=== PATIENT | female | born 1975 | race Caucasian/White ===

== ENCOUNTER 2019-04-09 10:33 | Emergency (ER) | payer OTHER, SELFPAY ==
[2019-04-09 11:08] VITALS: BP 105/49; PULSE 71; RESP 18; TEMP 36.4; O2SAT 100
--- NOTE | 2019-04-09 11:27 | ED.ABDPAIN ---
HPI - Abdominal Pain General Chief Complaint: Abdominal Pain Stated Complaint: abdominal pain/chills/fever Time Seen by Provider: 04/09/19 11:27 Source: patient and RN notes reviewed History of Present Illness HPI narrative: Patient is a 43-year-old female that presents the urgent care with complaints of abdominal pain, bloating, fever, decreased appetite. Patient states that on Saturday she felt that she was unable to pass gas and felt very bloated but was able to tolerate the pain on Saturday and Saturday. Patient states that then Saturday she started to have the fever and chills with loose stools. Patient has increasingly low abdominal pains. Denies any urinary symptoms. Reports of nausea without vomiting. No other acute complaints. Patient appears to be in pain but otherwise no acute distress noted. Patient read the plan of care. Related Data Home Medications Medication Instructions Recorded Confirmed cholecalciferol (vitamin D3) unit 04/09/19 [Vitamin D3] magnesium oxide 04/09/19 Allergies Allergy/AdvReac Type Severity Reaction Status Date / Time fluconazole Allergy Unknown Hives Verified 04/09/19 11:02 Sulfa (Sulfonamide Allergy Unknown Rash Verified 04/09/19 11:02 Antibiotics) levofloxacin [From Levaquin] AdvReac Joint Pain Verified 04/09/19 11:01 Review of Systems Review of Systems: Narrative: CONSTITUTIONAL: Reports a fever, chills, sweats EYES: Denies visual changes, redness, or discharge. ENT: Denies rhinorrhea, congestion, sore throat, or otalgia. CARDIOVASCULAR: Denies chest pain, palpitations, or edema. RESPIRATORY: Denies cough or dyspnea. GASTROINTESTINAL: Reports of diffuse abdominal pain, bloating, loose stools, nausea GENITOURINARY: Denies dysuria or hematuria. SKIN: Denies rash or itching. MUSCULOSKELETAL: Denies back pain, joint pain, or myalgia. NEUROLOGIC: Denies headache, numbness, or weakness.. All other systems reviewed are negative, except as documented in HPI. [facility] Family History Family History (Updated 05/06/18 @ 09:14 by DOCTOR UNKNOWN) Father Hypertension Family history of elevated blood lipids Family history of diabetes mellitus in first degree relative Family history of coronary artery disease Diabetes mellitus Family history of hypercholesterolemia Grandparent Cerebrovascular accident Social History Social History Smoking status: Former smoker Smoking end date: 02/11/98 Alcohol intake: current Comments At the time of my signature, I reviewed and agree with the nursing past medical, surgical, social, and family history. There is no relevant family history pertinent to the patient complaint. Exam Narrative: Exam Narrative: GENERAL: This is a well-nourished, well-developed patient, in no apparent distress. HEAD: normocephalic, atraumatic. EYES: PERRL. Sclera clear/white. Vision is grossly intact. EARS: External ears normal NOSE: External nose normal with no obvious nasal discharge THROAT: Mucous membranes moist NECK: Neck supple CARDIOVASCULAR: Regular rate and rhythm without murmurs, gallops, or rubs. RESPIRATORY: Clear to auscultation. Breath sounds equal bilaterally. No wheezes, rales, or rhonchi. GASTROINTESTINAL: Abdomen soft, diffuse moderate abdominal tenderness more noted to the lower quadrants with mild distention; negative obturator SKIN: warm, intact with no suspicious lesions or rash, good texture and turgor. NEURO: awake, alert, and oriented to person, place and time. There were no obvious focal neurologic abnormalities. EXTREMITIES: No clubbing, cyanosis, or edema. BACK: Mild bilateral CVA tenderness Course Vital Signs Vital signs: Vital Signs Temperature 97.5 F L 04/09/19 11:08 Pulse Rate 71 04/09/19 11:08 Respiratory Rate 72 H 04/09/19 11:08 Blood Pressure 105/49 L 04/09/19 11:08 Pulse Oximetry 100 04/09/19 11:08 Temperature 97.5 F L 04/09/19 11:08 Pulse Rate 71 04/09/19 11:08 Respiratory Rate 72 H
== END 2019-04-09 11:45 | disposition short-term general hospital (02) ==
PROVIDERS: Emergency Provider Nurse Practitioner Family; PCP Internal Medicine
DX: R10.84 Generalized abdominal pain (principal); R50.9 Fever, unspecified; R14.0 Abdominal distension (gaseous); Z87.891 Personal history of nicotine dependence
CPT/HCPCS: 81003; 87804; 99213; G0463

== ENCOUNTER 2019-04-09 12:05 | Emergency (ER) | payer OTHER, SELFPAY ==
--- NOTE | ~2019-04-09 | CT_ITS ---
EXAMINATION: CT abdomen pelvis w con DATE: 04/09/2019 14:34 INDICATION: Left lower quadrant abdominal pain. TECHNIQUE: Computed tomography (CT) of the abdomen and pelvis was performed with 100 mL Omnipaque 350 intravenous contrast. Automated exposure control and iterative reconstruction technique were employe d. The dose-length product was 279.13 mGy-cm. COMPARISON: CT abdomen and pelvis 10/02/2010 FINDINGS: The visualized portions of the lung bases demonstrate mild atelectasis. No pleural effusion . The heart size is normal. No pericardial effusion. The liver, gallbladder, spleen, pancreas, adrena l glands, and kidneys are normal. There are no dilated loops of bowel. The appendix is normal. There are no pathologically enlarged lymph nodes. There is fat stranding of the greater omentum inferiorly. There is a small volume of ascites. The left periuterine and ovarian veins are enlarged, consistent with pelvic venous insufficiency. There is mild thoracic and lumbar spondylosis. IMPRESSION: 1. Small volume of ascites. 2. Fat stranding of the greater omentum inferiorly, which may be edema or fat necrosis. Peritoneal ca rcinomatosis cannot be excluded. 3. Pelvic venous insufficiency. Reviewed, dictated and finalized at location A. LAYER IMPRESSION: 1. Small volume of ascites. 2. Fat stranding of the greater omentum inferiorly, which may be edema or fat n ecrosis. Peritoneal carcinomatosis cannot be excluded. 3. Pelvic venous insufficiency.
[2019-04-09 12:07] VITALS: BP 115/55; PULSE 71; RESP 19; TEMP 36.7; O2SAT 100
--- NOTE | 2019-04-09 12:18 | PC.NURSE ---
Blood draw attempted x2 with no success.
--- NOTE | 2019-04-09 13:53 | PC.NURSE ---
Patient to restroom at this time.
--- NOTE | 2019-04-09 13:55 | ED.ABDPAIN ---
HPI - Abdominal Pain General Chief Complaint: Abdominal Pain Stated Complaint: abd pain Time Seen by Provider: 04/09/19 13:51 Source: patient Mode of arrival: ambulatory Limitations: no limitations History of Present Illness HPI narrative: A 43 y/o female presents to the ED with c/o generalized ABD pain. Pt states that the ABD pain started 4 days ago and has been constant since. She notes that the ABD pain feels like a fullness and she is bloated. On 04/07/19 she adds that she had one episode of diarrhea, but it has since resolved. Last night the patient started to have a 101F fever and chills. She took Ibuprofen for the fever with relief. Today the patient called her PCP's office and they advised her to be evaluated at the ED. Pt denies N/V and urinary frequency. She does not note ever having these symptoms before. MD elicited complaint: abdominal pain (Generalized) Onset (ago): day(s) (4) Pain Consistency: constant Location: diffuse Quality: fullness Associated symptoms: diarrhea (Resolved), fever, chills and other (ABD bloating) Related Data Home Medications Medication Instructions Recorded Confirmed cholecalciferol (vitamin D3) unit 04/09/19 [Vitamin D3] magnesium oxide 04/09/19 Allergies Allergy/AdvReac Type Severity Reaction Status Date / Time fluconazole Allergy Unknown Hives Verified 04/09/19 11:02 Sulfa (Sulfonamide Allergy Unknown Rash Verified 04/09/19 11:02 Antibiotics) levofloxacin [From Levaquin] AdvReac Joint Pain Verified 04/09/19 11:01 Review of Systems Review of Systems: All systems reviewed & are unremarkable except as noted in HPI and below Constitutional: Constitutional: Reports chills and Reports fever(s) Gastrointestinal: Gastrointestinal: Reports abdominal pain (Generalized), Reports bloating, Reports diarrhea (Resolved), Denies nausea and Denies vomiting Genitourinary: Genitourinary: Denies nocturia [facility] Past Medical History Medical History Arm fracture, left UTI (urinary tract infection) Surgical History Surgical History (Updated 04/09/19 @ 14:18 by Iram Aden) History of surgery on arm Left Family History Family History Father Hypertension Family history of elevated blood lipids Family history of diabetes mellitus in first degree relative Family history of coronary artery disease Diabetes mellitus Family history of hypercholesterolemia Grandparent Cerebrovascular accident Social History Social History Smoking status: Former smoker Smoking end date: 02/11/98 Alcohol intake: current Gender identity (if verbalized by the patient): Female Exam Const: General: healthy appearing and no acute distress Nutritional Appearance: well nourished HENMT: Mouth: Yes lip normal and Yes moist mucous membranes Eyes: Conjunctivae: conjunctivae normal Pupils: Equal, round and reactive pupils present Resp: Effort & Inspection: normal respiratory effort Auscultation: clear to auscultation bilaterally Cardio: Rate: regular rate Rhythm: regular rhythm Heart sounds: no murmurs GI: GI Palp: Yes Soft to palpation, Yes Tenderness to palpation present (GI) (LLQ), No Guarding due to palpation present (GI) and No Rebound tenderness present Auscultation: normal bowel sounds Back/Spine/Pelvis: Back: other (Full ROM) Skin: General skin exam: normal color, dry skin and other (Warm) Neuro: General: patient oriented x3 (Alert) Speech: normal speech Extrem: General: full ROM Psych: Mental Status: mental status grossly normal Affect: normal affect Course Vital Signs Vital signs: Vital Signs Temperature 36.7 C 04/09/19 12:07 Pulse Rate 71 04/09/19 12:07 Respiratory Rate 19 04/09/19 12:07 Blood Pressure 115/55 L 04/09/19 12:07 Pulse Oximetry 100 04/09/19 12:07 Temperature 36.9 C 04/09/19
[2019-04-09 14:15] LABS: Basophils Percent Auto 0.3 % (0.2-1.2); Eosinophils Absolute Auto 0.1 K/mm3 (0-0.3); Eosinophils Percent Auto 0.8 % (0-4.4); Hemoglobin 12.1 g/dL (12.0-15.0); Immature Granulocyte Absolute 0.03 K/mm3 (0.00-0.031); Immature Granulocyte Percent A 0.2 % (0-0.5); Lymphocytes Absolute Auto 1.69 K/mm3 (0.9-3.2); Lymphocytes Percent Auto 13.6 % (18.3-44.2); Mean Corpuscular HGB Conc 31.8 g/dl (32-36); Mean Corpuscular Hemoglobin 28.9 pg (26-34); Mean Corpuscular Volume 90.9 fl (80-100); Mean Platelet Volume 11.9 fl (7.4-10.4); Monocytes Percent Auto 7.9 % (2.6-8.5); Neutrophils Absolute Auto 9.6 K/mm3 (1.3-6.7); Neutrophils Percent Auto 77.2 % (45.5-73.1); Platelet Count Result 325 k/mm3 (150-375); Red Blood Count 4.18 M/mm3 (4.2-5.4); Red Cell Distribution Width 12.9 % (11.5-14.5); White Blood Count 12.5 K/mm3 (4.5-10.0)
[2019-04-09 14:17] LABS: Add Urine Microscopic? YES; Appearance Urine Clear (Clear); Bilirubin Urine Negative (Negative); Blood Urine Negative (Negative); Color Urine Colorless (Yellow); Glucose Urine UA Negative (Negative); Ketones Urine Trace mg/dL (Negative); Leukocyte Esterase Ur Negative LEU/UL (Negative); Mucus Urine Rare /lpf; Nitrate Urine Negative (Negative); Protein Urine Negative (Negative); Specific Grav Ur 1.005 (1.001-1.035); Squamous Epithelial Cell Urine Rare /hpf (Few); Urobilinogen Urine Negative mg/dL (<2.0); WBC Urine 0-3 /hpf
[2019-04-09 14:26] LABS: Alanine Aminotransferase 14 U/L (4-35); Albumin Level 3.9 g/dL (3.5-5.1); Alkaline Phosphatase 66 U/L (38-126); Aspartate Amino Transferase 28 U/L (14-36); Bilirubin,Total 0.6 mg/dL (0.2-1.3); Blood Urea Nitrogen 7 mg/dL (7-17); Calcium 8.7 mg/dL (8.4-10.2); Carbon Dioxide 28 mmol/L (22-30); Chloride 97 mmol/L (98-107); Estimated Glomerular Filt Rate > 60; Glucose 94 mg/dL (65-105); Lipase 31 U/L (23-300); Potassium 3.4 mmol/L (3.4-5.0); Sodium 139 mmol/L (137-145)
[2019-04-09 14:33] LABS: Blood Urea Nitrogen 6 mg/dL (8-26); Estimated Glomerular Filt Rate > 60
[2019-04-09 14:48] VITALS: BP 105/58; PULSE 68; RESP 18; TEMP 36.9; O2SAT 100
[2019-04-09] MEDS: KETOROLAC 30 MG/ML VIAL (*BKC) IV PUSH (15:34)
[2019-04-09 16:00] VITALS: BP 92/56; PULSE 72; RESP 16; TEMP 36.3; O2SAT 99
== END 2019-04-09 16:10 | disposition home or self-care (01) ==
PROVIDERS: Emergency Medicine; Emergency Provider Emergency Medicine; PCP Internal Medicine
DX: R18.8 Other ascites (principal); R10.32 Left lower quadrant pain; Z87.891 Personal history of nicotine dependence
CPT/HCPCS: 36415; 74177; 80053; 81001; 81025; 83690; 85025; 96374; 99284; J1885; Q9967

== ENCOUNTER 2023-07-07 11:42 | Emergency (ER) | payer OTHER, SELFPAY ==
[2023-07-07 11:56] VITALS: BP 112/73; PULSE 69; RESP 16; TEMP 37.1; O2SAT 100
--- NOTE | 2023-07-07 12:17 | ED.WOUNDLAC ---
HPI - Wound/Laceration General Chief Complaint: Wound/Laceration Stated Complaint: Stitch Removal Time Seen by Provider: 07/07/23 12:17 Source: patient, RN notes reviewed and old records reviewed Mode of arrival: ambulatory Limitations: no limitations History of Present Illness HPI narrative: 47-year-old female to [facility] requesting suture removal from right brow. Patient reports falling down basement steps while visiting a friend in [place] 5 days ago. Patient reports that she was treated at an emergency department and cleared for discharge. Patient states that provider advised her to sutures removed after 4 days. Patient denies any pain, redness, warmth or drainage from wound site. Related Data Home Medications Medication Instructions Recorded Confirmed cholecalciferol (vitamin D3) 100 unit 04/09/19 mcg (4,000 unit) capsule (Vitamin D3) magnesium oxide 04/09/19 Allergies Allergy/AdvReac Type Severity Reaction Status Date / Time fluconazole Allergy Unknown Hives Verified 07/07/23 12:13 Sulfa (Sulfonamide Allergy Unknown Rash Verified 07/07/23 12:13 Antibiotics) levofloxacin [From Levaquin] AdvReac Joint Pain Verified 07/07/23 12:13 Review of Systems Review of Systems: All systems reviewed & are unremarkable except as noted in HPI and below Constitutional: Constitutional: Reports no additional constitutional complaints Eyes: Eyes: Reports no additional eye complaints ENT: Reports system reviewed and no additional complaints, except as documented Cardiovascular: Cardiovascular: Reports no additional cardiovascular complaints, Denies chest pain and Denies dyspnea Respiratory: Respiratory: Reports no additional respiratory complaints, Denies cough and Denies dyspnea Musculoskeletal: Musculoskeletal: Reports no additional musculoskeletal complaints Integumentary/Breasts: Skin/Breast: Reports wounds ( right lateral brow) Neurologic: Reports system reviewed and no additional complaints, except as documented Psychiatric: Psychiatric: Reports no additional psychiatric complaints [facility] Past Medical History Medical History Arm fracture, left UTI (urinary tract infection) Surgical History Surgical History History of surgery on arm Left Family History Family History Father Hypertension Family history of elevated blood lipids Family history of diabetes mellitus in first degree relative Family history of coronary artery disease Diabetes mellitus Family history of hypercholesterolemia Grandparent Cerebrovascular accident Social History Social History Smoking status: Former smoker Smoking end date: 02/11/98 Alcohol intake: current Gender identity (if verbalized by the patient): Female Comments At the time of my signature, I reviewed and agree with the nursing past medical, surgical, social, and family history. There is no relevant family history pertinent to the patient complaint. Exam Const: General: cooperative, comfortable, no acute distress, alert and well nourished Nutritional Appearance: well nourished Orientation/consciousness: patient oriented x3 Limitations: no limitations HENMT: Head: normal to inspection Ears: external ears normal Face/Nose/Sinus: Normal external nose present, Normal nares present and normal facial exam Face and sinus: no erythema and no edema Mouth: Yes Normal oral and palatal mucosa present Eyes: General: appearance normal, both eyes and all related structures Neck: Neck: normal visual inspection, full ROM and no meningeal signs Lymphatic: no lymphadenopathy noted and no lymphedema noted Chest: Chest palpation & inspection: normal inspection of the chest Resp: Effort & Inspection: normal
== END 2023-07-07 12:36 | disposition home or self-care (01) ==
PROVIDERS: Emergency Provider Nurse Practitioner Family; PCP Physician Assistant
DX: S01.111D Laceration without foreign body of right eyelid and periocular area, subsequent encounter (principal); W10.9XXD Fall (on) (from) unspecified stairs and steps, subsequent encounter; Z87.891 Personal history of nicotine dependence
CPT/HCPCS: 99202; G0463

== ENCOUNTER 2024-09-14 13:41 | Emergency (ER) | payer OTHER, SELFPAY ==
[2024-09-14 13:49] VITALS: BP 126/83; PULSE 76; RESP 18; TEMP 36.6; O2SAT 99
--- NOTE | 2024-09-14 13:50 | ED_ITS ---
HPI - Female Genitourinary General Chief complaint: Urogenital-Female Stated complaint: Uti Symptoms Time Seen by Provider: 09/14/24 14:04 Source: patient, RN notes reviewed and old records reviewed Mode of arrival: ambulatory Limitations: no limitations History of Present Illness HPI Narrative: Has a 48-year-old female presents to the [facility] with concerns for UTI. Reports some lower abdominal discomfort, low back pain. Has been on immunosuppressant therapy and gets treated in [place] at [facility]. Also reports small amount of urine. Denies any pain currently Has an appointment in [place] on Saturday Onset (ago): week(s) (1) Related Data Home Medications ?Medication ?Instructions ?Recorded ?Confirmed ?Last Taken ?Type cholecalciferol (vitamin D3) 100 4,000 unit PO DAILY 04/09/19 09/14/24 Unknown History mcg (4,000 unit) capsule (Vitamin D3) magnesium oxide 1 cap BYMOUTH DAILY 04/09/19 09/14/24 Unknown History citalopram 10 mg tablet 10 mg PO DAILY 09/14/24 09/14/24 Unknown History levothyroxine 88 mcg tablet 88 mcg PO DAILY 09/14/24 09/14/24 Unknown History progesterone micronized 100 mg 100 mg PO QPM 09/14/24 09/14/24 Unknown History capsule Allergies Allergy/AdvReac Type Severity Reaction Status Date / Time fluconazole Allergy Unknown Hives Verified 09/14/24 13:48 Sulfa (Sulfonamide Allergy Unknown Rash Verified 09/14/24 13:48 Antibiotics) levofloxacin (From Levaquin) AdvReac Joint Pain Verified 09/14/24 13:48 Review of Systems Review of Systems: All systems reviewed & are unremarkable except as noted in HPI and below Constitutional: Constitutional: Reports no additional constitutional complaints ENT: Reports system reviewed and no additional complaints, except as documented Cardiovascular: Cardiovascular: Reports no additional cardiovascular complaints, Denies chest pain and Denies dyspnea Respiratory: Respiratory: Reports no additional respiratory complaints, Denies chest congestion, Denies cough and Denies dyspnea Gastrointestinal: Gastrointestinal: Reports as per HPI Musculoskeletal: Musculoskeletal: Reports no additional musculoskeletal complaints Integumentary/Breasts: Skin/Breast: Reports system reviewed and no additional complaints, except as docu PMFSH Past Medical History Medical History Arm fracture, left UTI (urinary tract infection) Surgical History Surgical History History of surgery on arm Left Family History Family History Father Hypertension Family history of elevated blood lipids Family history of diabetes mellitus in first degree relative Family history of coronary artery disease Diabetes mellitus Family history of hypercholesterolemia Grandparent Cerebrovascular accident Social History Social History Smoking status: Former smoker Smoking end date: 02/11/98 Alcohol intake: current Gender identity (if verbalized by the patient): Female Comments At the time of my signature, I reviewed and agree with the nursing past medical, surgical, social, and family history. There is no relevant family history pertinent to the patient complaint. Exam Const: General: cooperative, healthy appearing, comfortable, no acute distress, well developed, alert and well nourished Nutritional Appearance: well nourished Orientation/consciousness: patient oriented x3 Limitations: no limitations HENMT: Head: normal to inspection Eyes: General: appearance normal, both eyes and all related structures Alignment and Position: alignment normal Neck: Neck: normal visual inspection, full ROM, no lymphadenopathy and no meningeal signs Chest: Chest palpation & inspection: normal inspection of the chest Resp: Effort & Inspection: normal respiratory effort and able to speak in complete sentences Auscultation: clear to auscultation bilaterally, no crackles, no rales, no rhonchi and no wheezes Cardio: Rate: regular rate : General: Yes no CVA tenderness Skin: General skin exam: normal color and no rashes or lesions noted Neuro: General: patient oriented x3, gait normal, moves all extremities and no meningeal signs Cognition (Neuro): normal cognition Speech: normal speech Gait exam (Neuro): Normal gait present Extrem: General: normal to inspection, full ROM, capillary refill normal and normal gait Psych: Appearance: grossly normal and well kempt Mental Status: mental status grossly normal Speech and movement: Normal speech and movement present and Clear speech present Affect: normal affect Attitude: cooperative Course Course Level of Care: Express Care Visit Vital Signs Vital signs: Vital Signs Temperature 97.9 F 09/14/24 13:49 Pulse Rate 76 09/14/24 13:49 Respiratory Rate 18 09/14/24 13:49 Blood Pressure 126/83 09/14/24 13:49 Pulse Oximetry 99 09/14/24 13:49 Oxygen Delivery Room Air 09/14/24 13:49 Temperature 97.9 F 09/14/24 13:49 Pulse Rate 76 09/14/24 13:49 Respiratory Rate 18 09/14/24 13:49 Blood Pressure 126/83 09/14/24 13:49 Pulse Oximetry 99 09/14/24 13:49 Oxygen Delivery Room Air 09/14/24 13:49 Reviewed MDM - Female Genitourinary MDM Narrative Medical decision making narrative: Patient sitting comfortably in exam room. Patient is nontoxic, vitals stable. Patient presents with wanting to rule out a UTI. Urine dip does not show UTI. Patient appropriate for outpatient treatment with close follow-up Discharge instructions reviewed with patient, as well as provided in writing per nursing staff. The instructions also include specific and strict return/GO TO THE ER as well as f/u information. All questions have been answered, and the patient deny any further questions with discharge and discharge plan. Some parts of this dictation were generated by voice recognition software and may contain typographical and/or grammatical inaccuracies. Differential Diagnosis Differential diagnosis: Likely urinary tract infection and cystitis Lab Data Labs: Lab Results 09/14/24 Range/Units 13:57 POC Urine Color Yellow POC Urine Clarity Cloudy POC Urine pH 6.0 POC Ur Specif [place] 1.020 POC Urine Protein Negative (Negative) POC Ur Glucose (UA) Negative (Negative) POC Urine Ketones Trace (Negative) POC Urine Blood Negative (Negative) POC Urine Nitrite Negative (Negative) POC Urine Bilirubin 1+ (Negative) POC Urine Urobilinogen 0.2 POC U Leukocyte Esteras Negative (Negative) Reviewed Critical Care Time Critical Care Time Critical Care Time: No Discharge Plan Discharge Clinical Impression: Dysuria Patient Disposition: Home Condition: Stable Instructions: Dysuria (ED) Additional Instructions: Follow-up with primary care provider Patient Language: Macedonian Prescriptions: No Action Vitamin D3 4,000 unit Capsule 4,000 unit PO DAILY magnesium oxide capsule 1 cap BYMOUTH DAILY progesterone micronized 100 mg capsule 100 mg PO QPM citalopram 10 mg tablet 10 mg PO DAILY levothyroxine 88 mcg tablet 88 mcg PO DAILY Follow-up/Referrals: PHYSICIAN,PREFINISH OPERATOR [Primary Care Provider] - Time of Disposition: 14:16
[2024-09-14 14:06] LABS: EDUAAPPEAR Cloudy; EDUABILI 1+ (Negative); EDUABLOOD Negative (Negative); EDUACOLOR1 Yellow; EDUAGLUCOSE Negative (Negative); EDUAKETONE Trace (Negative); EDUALEUKO Negative (Negative); EDUANITRATE Negative (Negative); EDUAPH 6.0; EDUAPROTEIN Negative (Negative); EDUASPGRAVITY 1.020; EDUAUROBILI 0.2
== END 2024-09-14 14:19 | disposition home or self-care (01) ==
PROVIDERS: Emergency Provider Nurse Practitioner
DX: R30.0 Dysuria (principal); Z87.891 Personal history of nicotine dependence
CPT/HCPCS: 81003; 99212; G0463